=== PATIENT | male | born 1975 | race Caucasian/White ===

== ENCOUNTER 2020-09-24 08:13 | Inpatient (IN) ==
[2020-09-24] MEDS ORDERED: NS 0.9% 1000 ml BAG 1,000 ML IV ONE (08:28)
[2020-09-24 09:06] LABS: ABS Basophils 0.1 10^3/ul (0-0.2); ABS Eosinophils 0.2 10^3/ul (0-0.6); ABS Lymphocytes 1.8 10^3/ul (1.0-4.8); ABS Monocytes 1.1 10^3/ul (0-0.8); ABS Neutrophils 6.1 10^3/ul (1.5-7.7); Eosinophil % 1.7 %; Hematocrit 40 % (42-52); Hemoglobin 13.9 g/dL (14.0-18.0); Lymphocyte % 19.3 %; Mean Corpuscular HGB Conc 35 g/dL (31-36); Mean Corpuscular Hemoglobin 36 pg (27-31); Mean Corpuscular Volume 103 fL (80-94); Mean Platelet Volume 9.2 fL (7.4-10.4); Platelet Count 116 10^3/uL (150-450); Red Blood Count 3.86 10^6 /uL (4.18-5.48); Red Cell Distribution Width 13 % (10-15); White Blood Count 9.2 10^3/uL (3.5-10.8)
[2020-09-24 09:19] LABS: ALT 80 U/L (7-52); AST 308 U/L (13-39); Albumin 3.5 g/dL (3.2-5.2); Albumin/Globulin Ratio 0.9 (1-3); Alkaline Phosphatase 300 U/L (34-104); BUN/Creatinine Ratio 7.5 (8-20); Blood Urea Nitrogen 6 mg/dL (6-24); C Reactive Protein 15.33 mg/L (<8.01); CO2 Carbon Dioxide 30 mmol/L (22-32); Calcium 8.2 mg/dL (8.6-10.3); Chloride 96 mmol/L (101-111); EGFR African American 125.9 (>60); EGFR Non-African American 104.1 (>60); Globulin 4.1 g/dL (2-4); Glucose 94 mg/dL (70-100); Lipase 70 U/L (11.0-82.0); Sodium 137 mmol/L (135-145); Total Protein 7.6 g/dL (6.4-8.9)
[2020-09-24 09:21] LABS: Anion Gap 11 mmol/L (2-11); Potassium 2.7 mmol/L (3.5-5.0)
[2020-09-24] MEDS ORDERED: Iohexol 300 (CONTRAST) 10 ML SDV IV ONE (09:22)
[2020-09-24 09:28] LABS: Activated Partial Thrombo Time 34.5 seconds (26.0-38.0); INR 1.21 (0.82-1.09)
[2020-09-24] MEDS ORDERED: Potassium Chlor 20 meq TAB.ER PO ONE (09:30)
[2020-09-24 09:43] LABS: Alcohol, S 177 mg/dL (<10)
[2020-09-24 09:51] LABS: Magnesium 1.5 mg/dL (1.9-2.7)
[2020-09-24 09:58] LABS: Acetaminophen < 15 mcg/mL
[2020-09-24] MEDS: KCL 20 MEQ/100 ML IVPREMIX 20 MEQ/100 ML BAG IV SCH ×2 (10:02→11:40)
[2020-09-24] MEDS ORDERED: LORazepam 2 mg VIAL 1 ml IV PUSH ONE (10:30)
[2020-09-24] MEDS ORDERED: Nicotine PATCH 14 MG/24 HR PATCH TRANSDERM ONE (10:30)
[2020-09-24] MEDS ORDERED: Lorazepam PYXIS KEY PRN (10:30)
[2020-09-24] MEDS ORDERED: Magnesium Sulfate 2 gm BAG 2 GM/50 ML BAG IVPB ONE (10:31)
[2020-09-24] MEDS ORDERED: Lorazepam PYXIS KEY ONE (10:36)
[2020-09-24 12:05] LABS: % Iron Saturation 85 % (15-55); Iron 188 ug/dL (50-212); Total Iron Binding Capacity 221 mcg/dL (250-450); Transferrin 158 mg/dL (203-362); Unsaturated Iron Binding 33 ug/dL
[2020-09-24] MEDS ORDERED: Thiamine 100 MG/ML 2 ml VIAL (200 mg) IM ONE (12:26)
[2020-09-24 12:27] LABS: Ferritin 980.5 ng/mL (24-336)
[2020-09-24 12:31] LABS: Folate 15.03 ng/mL (>3.99)
[2020-09-24 12:32] LABS: Vitamin B12 880 pg/mL (180-914)
[2020-09-24 13:45] LABS: Hepatitis B Surface Antigen Nonreactive (Nonreactive)
[2020-09-24 13:50] LABS: Hepatitis A Ab IgM Negative (Negative); Hepatitis B Core IgM Nonreactive (Nonreactive)
[2020-09-24 14:03] LABS: Hepatitis C Antibody Reactive (Negative)
[2020-09-24 15:05] LABS: Body Fluid Source Peritonial Fluid
[2020-09-24] MEDS: Nicotine PATCH 21 MG/24 HR PATCH TRANSDERM SCH (15:05)
[2020-09-24 16:56] LABS: Urine Appearance Turbid; Urine Bilirubin Negative (Negative); Urine Blood Negative (Negative); Urine Color Amber; Urine Glucose Negative (Negative); Urine Ketones Trace (Negative); Urine Nitrite Negative (Negative); Urine Protein Negative (Negative); Urine Specific Gravity 1.039 (1.010-1.030); Urine Urobilinogen Positive (Negative)
[2020-09-24 17:37] LABS: Magnesium 1.8 mg/dL (1.9-2.7); Potassium 3.4 mmol/L (3.5-5.0)
[2020-09-24 18:44] LABS: Body Fluid Mono 76 %; Body Fluid Other Cells 102
[2020-09-25 06:04] LABS: Albumin 2.9 g/dL (3.2-5.2); Albumin/Globulin Ratio 0.9 (1-3); BUN/Creatinine Ratio 8.7 (8-20); Calcium 7.9 mg/dL (8.6-10.3); EGFR African American 149.4 (>60); EGFR Non-African American 123.4 (>60); Globulin 3.4 g/dL (2-4); Indirect Bilirubin 2.3 mg/dL (0.3-1.0); Magnesium 1.6 mg/dL (1.9-2.7); Total Bilirubin 4.8 mg/dL (0.2-1.0); Total Protein 6.3 g/dL (6.4-8.9)
[2020-09-25 07:05] LABS: ABS Eosinophils 0.1 10^3/ul (0-0.6); ABS Lymphocytes 1.4 10^3/ul (1.0-4.8); ABS Monocytes 0.8 10^3/ul (0-0.8); ABS Neutrophils 5.7 10^3/ul (1.5-7.7); Eosinophil % 1.7 %; Hematocrit 36 % (42-52); Hemoglobin 12.6 g/dL (14.0-18.0); Lymphocyte % 17.2 %; Mean Corpuscular HGB Conc 35 g/dL (31-36); Mean Corpuscular Hemoglobin 36 pg (27-31); Mean Corpuscular Volume 104 fL (80-94); Mean Platelet Volume 9.5 fL (7.4-10.4); Nucleated Red Blood Cells % 0.1; Platelet Count 97 10^3/uL (150-450); Red Cell Distribution Width 14 % (10-15)
[2020-09-25] MEDS ORDERED: Magnesium Sulf 4 GM/100 ML IV 4,000 MG/100 ML BAG IVPB ONE (08:30)
[2020-09-25] MEDS: Nicotine PATCH 21 MG/24 HR PATCH TRANSDERM SCH (09:01)
[2020-09-25] MEDS: Multivitamins/Minerals TAB PO SCH (09:02)
[2020-09-25 09:26] LABS: Total Bilirubin 4.7 mg/dL (0.2-1.0)
[2020-09-25 14:14] LABS: Fluid Type, Glucose PERITONEAL FLUID; Glucose, BF 87 mg/dL
[2020-09-25 14:15] LABS: Albumin, BF 1.1 g/dL; Fluid Type, Albumin PERITONEAL FLUID
[2020-09-25 14:16] LABS: Fluid Type, Protein, Total PERITONEAL FLUID
[2020-09-25 14:17] LABS: Lactate Dehydrogenase, BF 86 U/L
[2020-09-26] MEDS: Nicotine PATCH 21 MG/24 HR PATCH TRANSDERM SCH (08:40)
[2020-09-26] MEDS: Multivitamins/Minerals TAB PO SCH (08:45)
[2020-09-26 10:43] VITALS: BP 128/91
== END 2020-09-26 12:15 | disposition home or self-care (01) | DRG 264 ==
LOC: ED 08:13 → MEDTELE 12:19
PROVIDERS: ADMIT Student in an Organized Health Care Education/Training Program; ATTEND Internal Medicine